=== PATIENT | female | born 1990 | race Caucasian/White ===

== ENCOUNTER 2021-06-29 18:57 | Emergency (ER) | payer BC, SELFPAY ==
[2021-06-29 19:05] VITALS: TEMP 36.6
[2021-06-29 19:07] VITALS: BP 132/70; PULSE 98; RESP 16; O2SAT 97
[2021-06-29 19:36] LABS: Add Manual Diff / Slide Review NO; Basophils Absolute Auto 100 /uL (0-100); Basophils Percent Auto 1.3 % (0-2); Eosinophils Absolute Auto 400 /uL (0-450); Eosinophils Percent Auto 4.1 % (2-4); Hemoglobin 12.6 g/dL (12.0-16.0); Lymphocytes Absolute Auto 2000 /uL (1100-4500); Lymphocytes Percent Auto 22.7 % (25-40); Mean Corpuscular HGB Conc 33.2 % (30-36); Mean Corpuscular Hemoglobin 28.3 PG (26-34); Mean Corpuscular Volume 85.4 fL (80-100); Monocytes Absolute Auto 700 /uL (0-900); Monocytes Percent Auto 8.1 % (3-14); Neutrophils Absolute Auto 5600 /uL (1500-7000); Neutrophils Percent Auto 63.8 % (50-75); Platelet Count 312 X10^3/uL (150-400); Red Blood Cell Count 4.45 X10^6/uL (4.0-5.2); Red Cell Distribution Width 14.3 % (11.6-14.8); White Blood Cell Count 8.7 X10^3/uL (4.5-11.0)
[2021-06-29 19:54] LABS: Alanine Aminotransferase 18 IU/L (<35); Albumin 4.3 g/dL (3.5-5.0); Albumin Globulin Ratio 1.4 (1.0-2.8); Alkaline Phosphatase 76 U/L (38-126); Aspartate Aminotransferase 27 IU/L (14-36); BUN Creatinine Ratio 14.3 (6-22); Bilirubin Total 0.3 mg/dL (0.2-1.3); Blood Urea Nitrogen 10 mg/dL (7-17); Calcium 9.4 mg/dL (8.4-10.2); Carbon Dioxide 26 mmol/L (22-32); Chloride 107 mmol/L (98-107); Estimated Glomerular Filt Rate > 60.0 mL/min (>60); Globulin 3.1 g/dL (1.7-4.1); Glucose 108 mg/dL (70-100); HEMOLYSIS 25 (0-50); Lipase 45 U/L (23-300); Potassium 3.6 mmol/L (3.4-5.1); Sodium 141 mmol/L (137-145); Total Protein 7.4 g/dL (6.3-8.2)
[2021-06-29 20:09] LABS: Calcium Oxalate Crystals Urine Many; RBC Urine None Seen (0-5/HPF); Squamous Epithelial Cell Urine 5-10 /HPF (0-5/HPF); WBC Urine None Seen (0-5/HPF)
[2021-06-29 20:10] LABS: Amorphous Sediment Urine 1+; Bacteria Urine None Seen; Culture Indicated Urine Cult Not Indicated; Mucus Urine 2+ (Negative)
--- NOTE | 2021-06-29 20:42 | ED_ITS ---
HPI - General Adult General Chief complaint: Abdominal Pain Stated complaint: CRAZY SHARP PAIN RT LOWER PAIN DIARRHEA Time Seen by Provider: 06/29/21 20:35 Source: patient Mode of arrival: Ambulatory History of Present Illness HPI narrative: Patient is a 30-year-old female who is here for evaluation of a fairly sudden onset of pain in her right side of her abdomen. She states that it occurred when she was driving home this afternoon. Has never had anything like this in the past. Did have an episode of diarrhea this morning without was prior to the abdominal pain. No nausea vomiting. No skin rashes. Has never had a kidney stone in the past. No urinary symptoms. The discomfort has improved somewhat. Review of Systems Constitutional Constitutional: Denies fever(s) Cardiovascular Cardiovascular: Reports system reviewed and no additional complaints, except as documented Respiratory Respiratory: Reports system reviewed and no additional complaints, except as documented Gastrointestinal Gastrointestinal: Reports system reviewed and no additional complaints, except as documented Genitourinary Genitourinary: Reports system reviewed and no additional complaints, except as documented Integumentary/Breasts Skin/Breast: Reports system reviewed and no additional complaints, except as documented Hematologic/Lymphatic On Anticoagulants: No Patient History Social History Smoking Status: Never smoker Smoking Status: Never smoker Exam Initial Vital Signs Initial Vital Signs: Vital Signs Temperature 97.8 F 06/29/21 19:05 Const General: cooperative and healthy appearing [facility] Head: normal to inspection and normocephalic Resp Effort & Inspection: normal respiratory effort Cardio Rate: regular rate GI Inspection: normal to inspection Palpation: soft, No firm, No guarding and tender (Right upper quadrant, negative Fisher sign, no right lower quadrant pain) Back/Spine/Pelvis Back: No CVA tenderness Skin General: no rashes or lesions noted Neuro General: patient alert, patient awake, gait normal and moves all extremities Extrem General: normal to inspection Psych Appearance: grossly normal and well kempt Course Orders Ordered: ED Orders 06/29/21 19:25 Complete Blood Count AUTO DIFF Stat Comprehensive Metabolic Panel Stat Lipase Stat Urine Microscopic Stat 06/29/21 20:42 US abdomen limited Stat Vital Signs Vital signs: Vital Signs - 8 hr 06/29/21 21:45 Pulse Rate 80 Blood Pressure 117/74 Pulse Oximetry 98 Medical Decision Making Lab Data Lab results reviewed: Yes I reviewed the patient's lab results. Result diagrams: 06/29/21 19:25 06/29/21 19:25 Labs: Lab Results 06/29/21 06/29/21 06/29/21 Range/Units 19:25 19:25 19:25 WBC 8.7 (4.5-11.0) X10^3/uL RBC 4.45 (4.0-5.2) X10^6/uL Hgb 12.6 (12.0-16.0) g/dL Hct 38.0 (36-46) % MCV 85.4 (80-100) fL MCH 28.3 (26-34) PG MCHC 33.2 (30-36) % RDW 14.3 (11.6-14.8) % Plt Count 312 (150-400) X10^3/uL Neut % (Auto) 63.8 (50-75) % Lymph % (Auto) 22.7 L (25-40) % [place] % (Auto) 8.1 (3-14) % Eos % (Auto) 4.1 H (2-4) % Baso % (Auto) 1.3 (0-2) % Neut # (Auto) 5600 (6983-0011) /uL Lymph # (Auto) 2000 (9437-2874) /uL [place] # (Auto) 700 (0-900) /uL Eos # (Auto) 400 (0-450) /uL Baso # (Auto) 100 (0-100) /uL Sodium 141 (137-145) mmol/L Potassium 3.6 (3.4-5.1) mmol/L Chloride 107 (98-107) mmol/L Carbon Dioxide 26 (22-32) mmol/L BUN 10 (7-17) mg/dL Creatinine 0.70 (0.52-1.04) mg/dL Estimated GFR > 60.0 (>60) mL/min BUN/Creatinine Ratio 14.3 (6-22) Glucose 108 H (70-100) mg/dL Calcium 9.4 (8.4-10.2) mg/dL Total Bilirubin 0.3 (0.2-1.3) mg/dL AST 27 (14-36) IU/L ALT 18 (<35) IU/L Alkaline Phosphatase 76 (38-126) U/L Total Protein 7.4 (6.3-8.2) g/dL Albumin 4.3 (3.5-5.0) g/dL Globulin 3.1 (1.7-4.1) g/dL Albumin/Globulin Ratio 1.4 (1.0-2.8) Lipase 45 (23-300) U/L Urine RBC None seen (0-5/HPF) Urine WBC None seen (0-5/HPF) Ur Squamous Epith Cells 5-10 /hpf H (0-5/HPF) Calcium Oxalate Crystal Many H Amorphous Sediment 1+ Urine Bacteria None seen (None) Urine Mucus 2+ H (Negative) Ur Culture Indicated? Cult not indicated Point of Care Testing Test Results Negative Urine Dip Bedside Urine Glucose Negative Bedside Urine Bilirubin - Negative Bedside Urine Ketone - Negative Urine Specific [place] 1.030 Bedside Urine Occult Blood +/- Bedside Urine pH 6.0 Bedside Urine Protein +/- 15 Bedside Urine Urobilinogen - Negative Bedside Urine Nitrite - Negative Bedside Urine Leukocytes - Negative Esterase Point of care testing: Point of Care Testing Test Results Negative Urine Dip Bedside Urine Glucose Negative Bedside Urine Bilirubin - Negative Bedside Urine Ketone - Negative Urine Specific [place] 1.030 Bedside Urine Occult Blood +/- Bedside Urine pH 6.0 Bedside Urine Protein +/- 15 Bedside Urine Urobilinogen - Negative Bedside Urine Nitrite - Negative Bedside Urine Leukocytes - Negative Esterase Imaging Data US - abdomen: Radiologist's Impression: [place] [address] Ultrasound Report Signed Patient: Cassie Waters MR#: [id number] : 1990 Acct:[id number] Age/Sex: 30 / F Date of Service: 06/29/21 Loc: ED Accession Number: [id number] ?? Procedure: US abdomen limited Ordering Provider: Cosme Chu D.O. PROCEDURE:? US ABDOMEN LIMITED ? INDICATIONS:? RUQ PAIN ? TECHNIQUE:? Real-time scanning was performed of the abdominal and retroperitoneal organs, with image documentation.? ? COMPARISON:? None. ? FINDINGS:? ? Liver:? The liver demonstrates diffusely increased echotexture without focal abnormalities consistent with chronic hepatocellular disease/hepatic steatosis. ? Gallbladder:? Gallbladder is normal in sonographic appearance without gallstones, gallbladder wall thickening, pericholecystic fluid, or abnormal sonographic Fisher's. ? Biliary ducts:? Intrahepatic bile ducts are non-dilated.? Extrahepatic bile duct caliber measures 5 mm.? Normal is 6-7 mm or less in diameter, or 10 mm or less post-cholecystectomy.? ? Pancreas:? Visualized portions of the pancreas are sonographically normal.? ? ? Miscellaneous:? No free abdominal fluid.? ? ? IMPRESSION:? The liver demonstrates diffusely increased echotexture without focal abnormalities consistent with chronic hepatocellular disease/hepatic steatosis. Consider correlation with LFTs. ? Dictated by: Lit Maguire M.D. on 06/29/2021 at 22:27 ? ? Approved by: Lit Maguire M.D. on 06/29/2021 at 22:31? MDM Narrative Medical decision making narrative: Urine shows no signs of infection, no blood in the urine. LFTs unremarkable. Lipase unremarkable. Rest of her labs unremarkable. Kidney function is unremarkable. Discomfort seems to be located in the right upper quadrant. Right upper quadrant ultrasound shows no signs of acute gallbladder pathology. Considered other etiologies such as kidney stones and appendicitis but her physical exam is not consistent with these potential etiologies. Also considered other etiologies such as bowel obstructions but I feel this is unlikely given her physical exam as well. Unsure the exact etiology. Patient was given a copy of her ultrasound report. Patient seems somewhat upset about the lack of a definitive etiology. We did discuss obtaining a CT scan for further evaluation. She discuss this with her and ultimately decided not to proceed with a CT scan. I do not feel this is unreasonable given her presentation. She was given return precautions and follow-up instructions. She expressed understanding and agreement. Discharge Plan Departure Patient Disposition: Home Clinical Impression: Abdominal pain Instructions: DI for Abdominal Pain-Adult Activity Restrictions/Additional Instructions: You can take Tylenol or ibuprofen for any discomfort. I do recommend that you follow-up with your primary doctor and return to the emergency department for any new or worsening symptoms.
--- NOTE | 2021-06-29 20:42 | DI.US.S_ITS ---
PROCEDURE: US ABDOMEN LIMITED INDICATIONS: RUQ PAIN TECHNIQUE: Real-time scanning was performed of the abdominal and retroperitoneal organs, with image documentation. COMPARISON: None. FINDINGS: Liver: The liver demonstrates diffusely increased echotexture without focal abnormalities consistent with chronic hepatocellular disease/hepatic steatosis. Gallbladder: Gallbladder is normal in sonographic appearance without gallstones, gallbladder wall thickening, pericholecystic fluid, or abnormal sonographic Fisher's. Biliary ducts: Intrahepatic bile ducts are non-dilated. Extrahepatic bile duct caliber measures 5 mm. Normal is 6-7 mm or less in diameter, or 10 mm or less post-cholecystectomy. Pancreas: Visualized portions of the pancreas are sonographically normal. Miscellaneous: No free abdominal fluid. IMPRESSION: The liver demonstrates diffusely increased echotexture without focal abnormalities consistent with chronic hepatocellular disease/hepatic steatosis. Consider correlation with LFTs. Dictated by: Lit Maguire M.D. on 06/29/2021 at 22:27 Approved by: Lit Maguire M.D. on 06/29/2021 at 22:31
[2021-06-29 21:45] VITALS: BP 117/74; PULSE 80; O2SAT 98
== END 2021-06-29 23:10 | disposition home or self-care (01) ==
PROVIDERS: Emergency Provider Emergency Medicine
DX: R10.11 Right upper quadrant pain (principal); R19.7 Diarrhea, unspecified
CPT/HCPCS: 76705; 80053; 81003; 81015; 81025; 83690; 85025; 99283; 99284

== ENCOUNTER → 2022-10-19 16:03 | Outpatient (CLI) | payer OTHER, SELFPAY | PROVIDERS: PCP Physician Assistant; Visit Provider Physician Assistant | DX: J02.9 Acute pharyngitis, unspecified (principal) | CPT/HCPCS: 87070 ==

== ENCOUNTER → 2023-01-14 16:46 | Outpatient (CLI) | payer OTHER, SELFPAY ==
[2023-01-14 18:04] LABS: Add Manual Diff / Slide Review NO; Basophils Absolute Auto 100 /uL (0-100); Basophils Percent Auto 0.6 % (0-2); Eosinophils Absolute Auto 100 /uL (0-450); Hematocrit 40.8 % (36-46); Hemoglobin 14.1 g/dL (12.0-16.0); Lymphocytes Absolute Auto 2000 /uL (1100-4500); Lymphocytes Percent Auto 20.6 % (25-40); Mean Corpuscular HGB Conc 34.7 % (30-36); Mean Corpuscular Hemoglobin 31.1 PG (26-34); Mean Corpuscular Volume 89.7 fL (80-100); Monocytes Absolute Auto 700 /uL (0-900); Monocytes Percent Auto 7.1 % (3-14); Neutrophils Absolute Auto 6700 /uL (1500-7000); Neutrophils Percent Auto 70.7 % (50-75); Platelet Count 293 X10^3/uL (150-400); Red Blood Cell Count 4.55 X10^6/uL (4.0-5.2); Red Cell Distribution Width 13.2 % (11.6-14.8); White Blood Cell Count 9.5 X10^3/uL (4.5-11.0)
[2023-01-14 19:10] LABS: TSH w/ Reflex to FT4 1.09 uIU/mL (0.47-4.68)
[2023-01-14 19:33] LABS: Alanine Aminotransferase 20 IU/L (<35); Albumin 4.4 g/dL (3.5-5.0); Albumin Globulin Ratio 1.6 (1.0-2.8); Alkaline Phosphatase 95 U/L (38-126); Aspartate Aminotransferase 22 IU/L (14-36); BUN Creatinine Ratio 17.6 (6-22); Bilirubin Total 0.3 mg/dL (0.2-1.3); Blood Urea Nitrogen 13 mg/dL (7-17); Calcium 9.1 mg/dL (8.4-10.2); Carbon Dioxide 28 mmol/L (22-32); Chloride 102 mmol/L (98-107); Cholesterol 154 mg/dL (140-199); Estimated Glomerular Filt Rate > 60 mL/min (>60); Globulin 2.8 g/dL (1.7-4.1); Glucose 81 mg/dL (70-100); HDL Cholesterol 50 mg/dL (40-60); HEMOLYSIS < 15 (0-50); LDL Cholesterol Calculated 85 mg/dL (<100); Potassium 3.8 mmol/L (3.4-5.1); Sodium 137 mmol/L (137-145); Total Protein 7.2 g/dL (6.3-8.2); Triglycerides 96 mg/dL (35-150)
[2023-01-15 07:03] LABS: Labcorp Hemoglobin (Hb) A1c 5.4 % (4.8-5.6)
== END ==
PROVIDERS: PCP Family Medicine; Referring Provider Family Medicine; Visit Provider Family Medicine
DX: E66.9 Obesity, unspecified (principal); F32.A Depression, unspecified; R53.82 Chronic fatigue, unspecified
CPT/HCPCS: 36415; 80053; 80061; 83036; 84443; 85025

== ENCOUNTER → 2023-10-21 09:30 | Outpatient (CLI) | payer OTHER, SELFPAY ==
--- NOTE | 2023-10-21 09:31 | DI.US.S_ITS ---
PROCEDURE: US BREAST LT LIMITED COMPARISON: None. INDICATIONS: bilateral breast pain, right breast mass, FH breast cancer FINDINGS: IMPRESSION: Dictated by: Greg Mcclelland M.D. on 10/21/2023 at 11:50 Approved by: Greg Mcclelland M.D. on 10/21/2023 at 11:50
--- NOTE | 2023-10-21 09:31 | DI.US.S_ITS ---
LIMITED ULTRASOUND OF RIGHT BREAST: 10/21/2023 CLINICAL: Patient returns today to evaluate a focal asymmetry in the right breast. Comparison is made to exams dated: 10/21/2023 ultrasound and 10/21/2023 mammogram - [facility]. Color flow and real-time ultrasound of the right breast 5 o'clock, 9-11 o'clock, and retroareolar regions were performed. Delong scale images of the real-time examination were reviewed. There is a possible 0.8 cm x 0.5 cm lymph node in the right breast at 11 o'clock anterior depth 3 cm from the nipple. This correlates with mammography findings. Other smaller presumed benign cysts are present. IMPRESSION: PROBABLY BENIGN The possible 0.8 cm x 0.5 cm lymph node in the right breast is probably benign. A follow-up ultrasound in 6 months is recommended. There is no abnormality seen in the right breast to correspond with the area of clinical concern at 5 o'clock, however, clinical correlation and clinical followup are recommended. There is no abnormality seen in the right breast to correspond with the mammography finding in the sub-areolar depth, likely fibroglandular tissue. This exam was interpreted at Station ID: [id number]. Electronically Signed By: Greg Mcclelland M.D. /:10/21/2023 11:49:33 letter sent: Followup Recommended Ultrasound BI-RADS: 3 Probably benign
--- NOTE | 2023-10-21 09:31 | DI.MG.S_ITS ---
BILATERAL DIGITAL DIAGNOSTIC MAMMOGRAM 3D/2D: 10/21/2023 CLINICAL: Palpable right breast lump. Intermittent pain in right breast. No prior exams were available for comparison. Both breasts are extremely dense, which lowers the sensitivity of mammography (category d />75% glandular tissue). There is a focal asymmetry in the right breast at 11 o'clock anterior depth. There also is a focal asymmetry in the right breast central to the nipple in the retroareolar region. There is a focal asymmetry in the left breast at 1 o'clock anterior depth. No other significant masses or calcifications are seen in either breast. IMPRESSION: INCOMPLETE: NEEDS ADDITIONAL IMAGING EVALUATION The focal asymmetry in the right breast at 11 o'clock anterior depth resembles a lymph node and is indeterminate. An ultrasound is recommended. The focal asymmetry in the right breast central to the nipple in the retroareolar region resembles fibroglandular tissue and is indeterminate. An ultrasound is recommended. The focal asymmetry in the left breast at 1 o'clock anterior depth resembles fibroglandular tissue or a lymph node and is indeterminate. An ultrasound is recommended. There is no abnormality seen in the right breast to correspond with the area of clinical concern, however, ultrasound is recommended. Based on the Tyrer Cuzick model (a risk assessment model) the patient's lifetime risk is 11.9% and her 10 year risk is 0.8%. According to the ACR, ACS, and NCCN guidelines, an annual breast MRI exam along with mammogram is recommended if the patient's lifetime risk is 20% or greater. This exam was interpreted at Station ID: [id number]. NOTE: For mammograms, a report in lay terms will be sent to the patient. Approximately 15% of breast malignancies will not be visualized mammographically. In the management of a palpable breast mass, a negative mammogram must not discourage biopsy of a clinically suspicious lesion. Electronically Signed By: Greg Mcclelland M.D. lc/:10/21/2023 11:46:38 ACR BI-RADS Category 0: Incomplete 3340F
--- NOTE | 2023-10-21 10:41 | DI.US.S_ITS ---
Patient Name: DANIEL GARCIA date: 1990 Sex: F Attending Physician: Geena Indications: Date: 10/21/2023 11:50 At the request of: ROMÁN JUAREZ Procedure: US breast LT limited LIMITED ULTRASOUND OF LEFT BREAST: 10/21/2023 CLINICAL: Patient returns for additional imaging over a suspected mass in the right breast. Patient returns today to evaluate an asymmetry in the left breast. Comparison is made to exam dated: 10/21/2023 mammogram - [facility]. Real-time ultrasound of the left breast 2 o'clock region was performed. Delong scale images of the realtime examination were reviewed. No significant abnormalities were seen sonographically in the left breast. IMPRESSION: NEGATIVE There is no sonographic evidence of malignancy. There is no abnormality seen in the left breast to correspond with the mammography finding which likely represents normal fibroglandular tissue and a small adjacent isoechoic lymph node. This exam was interpreted at Station ID: [id number]. Electronically Signed By: Greg Mcclelland M.D. lc/:10/21/2023 11:50:47 Ultrasound BI-RADS: 1 Negative
== END ==
LOC: MAMMO 09:30
PROVIDERS: PCP Family Medicine; Referring Provider Physician Assistant Medical; Visit Provider Physician Assistant Medical
DX: N64.4 Mastodynia (principal); Z80.3 Family history of malignant neoplasm of breast; N63.10 Unspecified lump in the right breast, unspecified quadrant; N64.89 Other specified disorders of breast
CPT/HCPCS: 76642; 77066; G0279

== ENCOUNTER → 2024-07-30 09:35 | Outpatient (CLI) | payer OTHER, SELFPAY ==
--- NOTE | 2024-07-30 09:36 | DI.US.S_ITS ---
LIMITED ULTRASOUND OF RIGHT BREAST AND AXILLA: 07/30/2024 CLINICAL: Patient returns for a 6 month follow up of the right breast. Comparison is made to exams dated: 10/21/2023 ultrasound and 10/21/2023 mammogram - [facility]. Real-time ultrasound of the right breast 9-12 o'clock, and axilla regions was performed. Delong scale images of the real-time examination were reviewed. No significant abnormalities were seen sonographically in the right breast and right axilla. IMPRESSION: NEGATIVE There is no sonographic evidence of malignancy. There is no abnormality seen in the right breast or in the right axilla to correspond with the area of clinical concern which likely represents normal fibroglandular tissue, however, recommend clinical follow up for persistent or worsening symptoms, or development of any clinically suspicious findings. Recommend initiating routine screening mammograms at age 40. Findings and recommendations were conveyed to the patient during today's evaluation. This exam was interpreted at Station ID: [id number]. Electronically Signed By: Lit Maguire M.D. at/:07/30/2024 10:14:38 letter sent: Clinical Evaluation ACR BI-RADS Category 1: Negative
== END ==
PROVIDERS: PCP Family Medicine; Referring Provider Physician Assistant Medical; Visit Provider Physician Assistant Medical
DX: N63.10 Unspecified lump in the right breast, unspecified quadrant (principal)
CPT/HCPCS: 76642

== ENCOUNTER → 2025-03-22 12:09 | Outpatient (CLI) | payer OTHER, SELFPAY | PROVIDERS: PCP Family Medicine; Referring Provider Internal Medicine; Visit Provider Internal Medicine | DX: R19.7 Diarrhea, unspecified (principal) | CPT/HCPCS: 83993 ==